=== PATIENT | male | born 1950 | race Caucasian/White ===

== ENCOUNTER 2022-03-14 18:41 | Inpatient (IN) | payer MEDICARE, BC ==
[~2022-03-14] VITALS: Ht 182.9 cm; Wt 79.4 kg
--- NOTE | 2022-03-14 19:00 | NUR ---
[facility], called 911 stating "my is trying to kill me." Pt A/ox3. Tolerating R/A well with no Resp distress. Pt changed in gown. Safety measures in place.
--- NOTE | 2022-03-14 19:05 | NUR ---
EMT AT PT'S BEDSIDE FOR EKG
[2022-03-14] MEDS ORDERED: TRIH2TAB3 PO (19:13)
[2022-03-14] MEDS ORDERED: TAMS-12 PO (19:13)
[2022-03-14] MEDS ORDERED: SERT50TA12 PO (19:13)
[2022-03-14] MEDS ORDERED: QUET25TA PO ×2 (19:13)
[2022-03-14] MEDS ORDERED: ONDA4TAB5 PO (19:13)
[2022-03-14] MEDS ORDERED: LORA-259 PO (19:13)
[2022-03-14] MEDS ORDERED: ZOLP10TA2 PO (19:13)
[2022-03-14] MEDS ORDERED: LEVO150T8 PO (19:13)
[2022-03-14] MEDS ORDERED: CARB1TAB21 PO (19:13)
--- NOTE | 2022-03-14 19:15 | NUR ---
PHLEB AT BEDSIDE FOR BLOOD DRAW
--- NOTE | 2022-03-14 19:17 | NUR ---
COVID SWAB COLLECTED AND SENT TO LAB
--- NOTE | 2022-03-14 19:27 | NUR ---
PROVIDE PT URINAL; AWAITING URINE SAMPLE. WILL F/U
[2022-03-14 19:47] LABS: ALBUMIN 3.9 g/dL (3.4-5.0); BILIRUBIN,DIRECT 0.1 mg/dL (0.0-0.2); BILIRUBIN,TOTAL 0.3 mg/dL (0.2-1.0); CALCIUM, SERUM 8.2 mg/dL (8.5-10.1); CREATININE 1.1 mg/dL (0.6-1.3); POTASSIUM 4.1 mmol/L (3.5-5.1)
[2022-03-14 20:04] LABS: BASOPHILS # (AUTO) 0.1 K/uL (0.0-0.2); BASOPHILS % (AUTO) 0.7 % (0.0-2.0); EOSINOPHILS % (AUTO) 1.3 % (0.0-6.0); HEMATOCRIT 38 % (39-51); HEMOGLOBIN 13.1 g/dL (13.5-17.5); LYMPHOCYTES % (AUTO) 12.9 % (20.0-44.0); MEAN CORPUSCULAR HGB CONC 34 g/dl (31.0-36.0); MEAN CORPUSCULAR VOLUME 94 fL (80-96); MONOCYTES # (AUTO) 0.5 K/uL (0.1-1.30); MONOCYTES % (AUTO) 7.2 % (2.0-12.0); NEUTROPHILS # (AUTO) 5.8 K/uL (1.8-8.9); NEUTROPHILS % (AUTO) 77.9 % (43.0-81.0); PLATELET COUNT (AUTO) 207 K/uL (150-450); RED BLOOD CELL COUNT(AUTO) 4.07 MIL/uL (4.5-6.0); WHITE BLOOD COUNT (AUTO) 7.4 K/uL (4.3-11.0)
--- NOTE | 2022-03-14 20:12 | NUR ---
PROVIDE PT URINAL; PT STILL NOT ABLE TO PROVIDE URINE SAMPLE. WILL F/U
--- NOTE | 2022-03-14 20:43 | NUR ---
URINE COLLECTED AND SENT TO LAB
--- NOTE | 2022-03-14 20:50 | NUR ---
PT PROVIDED WITH FOOD AND WATER; TOLERATING WELL
[2022-03-14 21:10] LABS: BILIRUBIN,URINE NEGATIVE (NEGATIVE); COLOR,URINE YELLOW (YELLOW); LEUKOCYTE ESTERASE ,URINE MODERATE (NEGATIVE); NITRITE, URINE NEGATIVE (NEGATIVE); PH,URINE 6.5 (5.0-8.0); PROTEIN,URINE NEGATIVE (NEGATIVE); UGLUCOSE NEGATIVE (NEGATIVE); UROBILINOGEN,URINE 0.2 EU/dL (0.2)
[2022-03-14 21:32] LABS: BACTERIA,URINE 2+ /HPF (None Seen); RBC,URINE 0-2 /HPF (0-2); SQUAMOUS EPITHELIAL CELL,UR 0-2 /HPF (None Seen); WBC,URINE 51-80 /HPF (0-3)
--- NOTE | 2022-03-14 21:37 | NUR ---
pardeep from dexter team at the bed side
--- NOTE | 2022-03-14 22:01 | NUR ---
5150 HOLD FOR GD PLACED BY ALLEGRA SANDOVAL
[2022-03-15] MEDS ORDERED: ZOLPIDEM TARTRATE 5 MG TABLET PO ONE
[2022-03-15] MEDS ORDERED: ZOLPIDEM TARTRATE 10 MG TABLET ONE (00:09)
[2022-03-15] MEDS ORDERED: ONDANSETRON 4 MG TAB.RAPDIS PO PRN (01:30)
--- NOTE | 2022-03-15 01:45 | NUR ---
REPORT GIVEN TO [facility] GPS RN FOR HCEKO
--- NOTE | 2022-03-15 02:08 | NUR ---
PT TRANSFERRING GPS VIA HOSPITAL PROTOCOL. VSS. ALL BELONGINGS WITH PT.
[2022-03-15 02:15] VITALS: BP 143/89
--- NOTE | 2022-03-15 02:15 | NUR ---
POLYSOMNOGRAPHIC TECHNOLOGIST NOTE: ADMITTED A 71-Y/O, MALE, FROM [facility]- INITIALLY PATIENT CAME FROM HOME. ADMITTED ON A 5150 HOLD FOR GD. PER HOLD, PT. REPORTED THAT HIS IS TRYING TO KILL HIM AND DOES NOT WANT TO GO BACK HOME. UPON FACE TO FACE EVALUATION, PATIENT IS ALERT AND ORIENTED X2, ANXIOUS, PARANOID AND GUARDED. PATIENT DENIES SI/HI AT THIS TIME. SKIN ASSESSMENT DONE. SKIN IS INTACT. ALL BELONGINGS WERE CHECKED FOR CONTRABAND AND WAS KEPT IN PT. ROOM LOCKER. HIS VALUABLES WERE TAKEN TO [facility]. PATIENT'S RIGHTS WERE DISCUSSED AND BOOKLET WAS GIVEN. CONTACTED DR. MADISON AND HOSPITALIST REGGIE SORIANO AND INFORMED THEM OF THE ADMISSION. BED IN LOW AND LOCKED POSITION. SAFETY PRECAUTIONS MAINTAINED. WILL CONTINUE TO MONITOR Q15 MINS FOR MOOD, SAFETY AND BEHAVIOR. PATIENT REFUSED TO COMMENT ABOUT FLU VACCINE AND REFUSING TO GET ONE. WILL INFORM PATIENT'S IN THE MORNING REGARDING ADMISSION.
[2022-03-15] MEDS ORDERED: BLOOD SUGAR DIAGNOSTIC 1 EACH STRIP IN ONE (02:30)
[2022-03-15] MEDS ORDERED: MAGNESIUM HYDROXIDE 30 ML UDC PO PRN (02:30)
[2022-03-15] MEDS ORDERED: MAG HYDROX/AL HYDROX/SIMETH 30 ML UDC PO PRN (02:30)
[2022-03-15] MEDS: ACETAMINOPHEN 325 MG TABLET PO PRN ×2 (05:43→18:55)
[2022-03-15] MEDS: LORAZEPAM 1 MG TABLET PO PRN ×2 (06:09→12:48)
[2022-03-15] MEDS: LEVOTHYROXINE SODIUM 75 MCG TABLET PO SCH (07:37)
[2022-03-15 08:00] VITALS: BP 176/98
[2022-03-15] MEDS: TRIHEXYPHENIDYL HCL 2 MG TABLET PO SCH ×3 (08:23→17:11)
[2022-03-15] MEDS: CARBIDOPA/LEVODOPA 25/100 MG 1 UDTAB PO SCH ×4 (08:24→21:07)
--- NOTE | 2022-03-15 10:00 | NUR ---
RN-CO: OF PATIENT IS THE LOBBY INSISTING TO COME HERE IN THE UNIT. I EXPLAINED THAT IN GPS UNIT, VISITING HOURS IS BETWEEN 6PM TO 8PM DURING WEEKDAYS. SHE WAS INSISTING TO COME HERE TO SEE THE PT. COMPLAINED TO HEAVY EQUIPMENT PLUMBING SUPERVISOR RN AND STATED "I WANT TO TALK TO THE PSYCHIATRIST ALBER." I EXPLAINED TO HER VIA PHONE THAT DR MADISON WILL BE HERE TODAY. SHE INSIST THAT THIS IS THE ONLY HOSPITAL THAT DON'T ALLOW VISITORS. SHE ALSO SAID "I NEED THE PSYCHIATRIST CALL ME NOW." " SHE ALSO DEMANDED BY PHONE THAT THE DOCTOR SHOULD ORDER, ST, NEUROLOGY AND OT.
--- NOTE | 2022-03-15 11:22 | NUR ---
GAB Initial Discharge Plan: Patient currently resides at [address] [place] [address], [place] [address]; ([phone]). GAB contacted pt's Malachi ([phone]) to discuss treatment/discharge plan, however, she was unavailable and this scenario writer left a voicemail to call back. GAB will work with the MD, family, and doctor to help coordinate appropriate discharge.
--- NOTE | 2022-03-15 11:22 | NUR ---
GAB Clinical Note: Pt placed on a 5150 hold for GD. Pt was paranoid against at home and was afraid of wanting to kill him. Patient currently resides at [address] [place] [address]; ([phone]). GAB contacted pt's Malachi ([phone]) to discuss treatment/discharge plan, however, she was unavailable and this inspector automatic typewriter left a voicemail to call back.
--- NOTE | 2022-03-15 11:23 | NUR ---
GAB Family Contact: SW contacted pt's Malachi ([phone]) to discuss treatment/discharge plan, however, she was unavailable and this auto service writer left a voicemail to call back.
--- NOTE | 2022-03-15 11:23 | NUR ---
Treatment Plan: Pt was afraid and refused to sign.
--- NOTE | 2022-03-15 11:32 | NUR ---
RN-CO: NOTIFIED DR MADISON THAT WHITLEY WANTS TO TALK TO HIM [phone]. DR MADISON ORDERED NEUROLOGY CONSULT, OT, ST, NOTED.
--- NOTE | 2022-03-15 11:52 | NUR ---
RN-CO: DR VINCENT WAS NOTIFIED REGARDING PT'S URINE WBC. AWAITING FOR RESPONSE.
--- NOTE | 2022-03-15 12:50 | NUR ---
NURSE NOTE: PT ANXIOUS AT THIS TIME. ATIVAN ADMINISTERED AT THIS TIME. WILL CONT TO MONITOR.
--- NOTE | 2022-03-15 13:50 | NUR ---
NURSE NOTE: PT CALM, IN STABLE CONDITION. WILL CONT TO MONITOR.
--- NOTE | 2022-03-15 14:58 | NUR ---
GAB Family Contact: GAB received a call back from pt's Hugo Ly ([phone]). She is not the DPOA. GAB and doctor Andre attempted to discuss pt's treatment/discharge plan and she was consistently yelling and was not allowing to speak. SW explained to her the reason why pt was brought in and read the 5150 hold. SW attempted to educate pt on pt's status, however, she was not understanding. kept stating that the staff does not know how to treat "Parkinsons Disease". was requesting for Neuro consult and SW informed charge Nurse Jacki who she had already requested this. is not understanding and is threatening the staff that she will hire a griddle attendant.
[2022-03-15 16:00] VITALS: BP 157/81
--- NOTE | 2022-03-15 16:19 | NUR ---
RN-CO: DR SILVA (NEUROLOGIST) SEEN AND EXAMINED PATIENT THIS AFTERNOON.
--- NOTE | 2022-03-15 16:22 | NUR ---
RN-CO: Velasquez (activity) assisted patient to do some exercises, walked him in the hallway and invited him to participate in group activities.
--- NOTE | 2022-03-15 18:14 | NUR ---
RN-CO: PATIENT'S CAME TO VISIT HER, REFUSED TO PUT HER CELLPHONE IN THE VISITOR'S LOCKER SHE HAS INTENSE EYE CONTACT AND ANGRY. STAFF NEEDS TO BE WITH HER EVEN THE ALTERATIONS MANAGER IS BUSY PASSING HER MEDICATIONS TO OTHER PATIENTS TO MAKE SURE HER SHE WON'T USE HER CELLPHONE FOR PICTURES OR VIDEO. SHE THREATENED ME, " IF MY KIDS CALL ME I WILL HOLD YOU RESPONSIBLE FOR NOT LETTING ME USE IT!"
--- NOTE | 2022-03-15 18:55 | NUR ---
NURSE NOTE: PT C/O NECK PAIN AT THIS TIME. TYLENOL PO ADMINISTERED ORDERED. WILL CONT TO MONITOR.
--- NOTE | 2022-03-15 19:30 | NUR ---
NURSE NOTE: PT STATED PAIN HAS DECREASED. FEELS BETTER. TYLENOL EFFECTIVE AT THIS TIME. WILL CONT TO MONITOR.
[2022-03-15 20:00] VITALS: BP 160/90
[2022-03-15] MEDS: QUETIAPINE FUMARATE 25 MG TABLET PO SCH (21:07)
[2022-03-15] MEDS: TAMSULOSIN 0.4 MG CAP.SR.24H PO SCH (21:07)
[2022-03-15] MEDS: ZOLPIDEM TARTRATE 5 MG TABLET PO PRN (21:53)
[2022-03-16] MEDS: LORAZEPAM 1 MG TABLET PO PRN (02:34)
--- NOTE | 2022-03-16 04:47 | NUR ---
RN NOTE SEAT COVER INSTALLER LEANA WAS NOTIFIED REGARDING PT'S URINE WBC WITH NEW ORDER OF KEFLEX 500MG PO BID X 5 DAYS NOTED AND CARRIED OUT.
[2022-03-16] MEDS: CEPHALEXIN MONOHYDRATE 500 MG CAPSULE PO SCH ×3 (05:12→16:19)
[2022-03-16] MEDS: LEVOTHYROXINE SODIUM 75 MCG TABLET PO SCH (07:33)
[2022-03-16 08:00] VITALS: BP 113/62
[2022-03-16] MEDS: SERTRALINE HCL 50 MG TABLET PO SCH (09:10)
[2022-03-16] MEDS: CARBIDOPA/LEVODOPA 25/100 MG 1 UDTAB PO SCH ×4 (09:11→20:20)
[2022-03-16] MEDS: TRIHEXYPHENIDYL HCL 2 MG TABLET PO SCH ×3 (09:11→16:18)
--- NOTE | 2022-03-16 09:54 | NUR ---
GAB Family Contact: GAB received a call from pt's Hugo Ly ([phone]) who stated that she was concerned of pt's medications and that she felt that he was weak. GAB and charge nurse Kristine went to assess the pt. Pt stated that he was just having a headache and feeling a little weak. GAB spoke with physical therapist who stated that pt is walking and doing better. Pt's speech also appeared to be clear. GAB notified Dr. Powell and he stated that he has not changed his medications and to notify the . GAB notified the of the medications and his current status. She was appreciative of this.
[2022-03-16 12:11] LABS: CHOLESTEROL 242 mg/dL (<200); HDL CHOLESTEROL 88 mg/dL (40-60); LDL 135 mg/dL (0-99); TRIGLYCERIDES 77 mg/dL (30-150)
[2022-03-16] MEDS ORDERED: LORAZEPAM 0.5 MG TABLET PO STA (14:16)
[2022-03-16 16:11] VITALS: BP 147/88
[2022-03-16 20:25] VITALS: BP 154/94
[2022-03-16] MEDS: ZOLPIDEM TARTRATE 5 MG TABLET PO PRN (21:18)
[2022-03-16] MEDS: QUETIAPINE FUMARATE 25 MG TABLET PO SCH (21:18)
[2022-03-16] MEDS: TAMSULOSIN 0.4 MG CAP.SR.24H PO SCH (21:18)
[2022-03-17] MEDS: LORAZEPAM 1 MG TABLET PO PRN (00:01)
[2022-03-17] MEDS: ACETAMINOPHEN 325 MG TABLET PO PRN (03:38)
--- NOTE | 2022-03-17 07:45 | NUR ---
RN OPENING NOTES PATIENT AWAKE IN BED RESTING, A/O X2, FORGETFUL, CONFUSED. NO S/S OF PAIN NOTED AT THIS TIME. ON ROOM AIR, NO DISTRESS OR SHORTNESS OF BREATH NOTED. PATIENT COMPLIANT WITH MEDICATION. PATIENT DENIES SUICIDE IDEATIONS AND HOMICIDAL IDEATIONS AT THIS TIME. PATIENT HAS NO NEEDS AT THIS TIME. FALL AND SAFETY MEASURES IN PLACE, BED ALARM ON, BED IN LOW LOCK POSITION, CALL LIGHT AND TABLE WITHIN EASY REACH, SIDE RAILS UP X2. WILL CONTINUE TO MONITOR.
--- NOTE | 2022-03-17 07:50 | NUR ---
RN OPENING NOTES PATIENT AWAKE IN BED RESTING, A/O X2-3. NO S/S OF PAIN NOTED AT THIS TIME. ON ROOM AIR, NO DISTRESS OR SHORTNESS OF BREATH NOTED. PATIENT COMPLIANT WITH MEDICATION. PATIENT DENIES SUICIDE IDEATIONS AND HOMICIDAL IDEATIONS AT THIS TIME. PATIENT HAS NO NEEDS AT THIS TIME. FALL AND SAFETY MEASURES IN PLACE, BED ALARM ON, BED IN LOW LOCK POSITION, CALL LIGHT AND TABLE WITHIN EASY REACH, SIDE RAILS UP X2. WILL CONTINUE TO MONITOR.
[2022-03-17 08:00] VITALS: BP 130/83
--- NOTE | 2022-03-17 08:10 | NUR ---
SW Discharge Note: Patient will return back home located at [address] [facility] [facility] [address], [place] [address]; ([phone]). Patients Malachi ([phone]) will steel pickler pt at 11AM. Pt appears to be alert and oriented x3. Pt denies suicidal and homicidal ideation. Pt denies visual/auditory hallucinations. Pt happy to be going back home. Pt will follow up with (Casing Cooker) Dr. Juan A Vasquez, located at [address] [place] [id number]; who will monitor and provide patients psychotropic medications. Pt presents with euthymic mood and congruent affect.
[2022-03-17] MEDS: SERTRALINE HCL 50 MG TABLET PO SCH (09:22)
[2022-03-17] MEDS: CARBIDOPA/LEVODOPA 25/100 MG 1 UDTAB PO SCH (09:22)
[2022-03-17] MEDS: LEVOTHYROXINE SODIUM 75 MCG TABLET PO SCH (09:22)
[2022-03-17] MEDS: TRIHEXYPHENIDYL HCL 2 MG TABLET PO SCH (09:22)
[2022-03-17] MEDS: CEPHALEXIN MONOHYDRATE 500 MG CAPSULE PO SCH (09:24)
--- NOTE | 2022-03-17 11:20 | NUR ---
ADMINISTRATIVE SERVICES SPECIALIST NOTE 71 YEAR OLD MALE DISCHARGED AMA, WANT TO TAKE HIM HOME, IN STABLE CONDITION. COMPLIANT WITH MEDICATIONS, COOPERATIVE WITH TREATMENT PLANS. PATIENT DENIES SI/HI AND INSTRUCTED TO GO TO THE CLOSEST ER IF DEVELOPING SI/HI. BEHAVIOR IMPROVED, PSYCHIATRIC TX PLAN MET AND TO CONTINUE TO MONITOR, MEDICAL TX PLANS DEFERRED FOR CONTINUAL MONITORING. INSTRUCTED PATIENT TO MAKE APPOINTMENT WITH HIS DOCTOR. EDUCATED PATIENT ABOUT AFTER CARE PLAN (EXIT-CARE) AND COPY PROVIDED. ALL BELONGINGS CHECKED AND SIGNED, RETURNED PERSONAL BELONGINGS TO PATIENT. NAME ARM BAND REMOVED. SKIN ASSESSMENT DONE, NO WOUNDS. MEDICATIONS RECONCILED WITH PSYCHIATRIST (GAGAN MADISON) AND MED. INT. (GILBERT VINCENT). PATIENT SIGNED DISCHARGE PAPERWORK. HEALTH TEACHING AND DISCHARGE INSTRUCTIONS GIVEN TO PATIENT AND PATIENT'S (ZULLY), VERBALIZED UNDERSTANDING. DISCUSSED MEDICATIONS WITH PATIENT AND INSTRUCTED PATIENT INCASE OF EMERGENCY TO CALL 911 OR GO TO NEAREST ER. PATIENT LEFT UNIT AMBULATING WITH NO SIGNS OF DISTRESS, ACCOMPANIED BY RN TO THE LOBBY. CHARGE NURSE AWARE OF DISCHARGE.
== END 2022-03-17 11:20 | disposition home or self-care (01) | DRG 885 ==
LOC: ER 18:43 → GPS 03-15 00:50
PROVIDERS: ADMIT Psychiatry & Neurology Psychiatry; ATTEND Internal Medicine
DX: F29 Unspecified psychosis not due to a substance or known physiological condition (principal); F02.84 Dementia in other diseases classified elsewhere, unspecified severity, with anxiety; F41.9 Anxiety disorder, unspecified; G20 Parkinson's disease; Z79.899 Other long term (current) drug therapy; E03.9 Hypothyroidism, unspecified; F32.A Depression, unspecified; Z53.1 Procedure and treatment not carried out because of patient's decision for reasons of belief and group pressure; Z91.81 History of falling; R27.8 Other lack of coordination; N40.0 Benign prostatic hyperplasia without lower urinary tract symptoms; F32.9 Major depressive disorder, single episode, unspecified; R53.1 Weakness
CPT/HCPCS: 36415; 80048-TC; 80061-TC; 80076-TC; 81001; 82565-TC; 82962-TC; 85025-TC; 87081-TC; 87086-TC; 92526; 92611-TC; 97116-TC; 97530-TC; C9803; G0480

== ENCOUNTER 2022-10-07 20:52 | Inpatient (IN) | payer MEDICARE, BC ==
[~2022-10-07] VITALS: Ht 182.9 cm; Wt 70.3 kg
[~2022-10-07 20:52] MED LIST: CARB1TAB21 PO; LEVO150T8 PO; LORA-259 PO; ONDA4TAB5 PO; QUET25TA PO; SERT50TA12 PO; TAMS-12 PO; TRIH2TAB3 PO; ZOLP10TA2 PO
--- NOTE | 2022-10-07 21:14 | NUR ---
[id number] CC ANNETTE LEG PAIN X2 DAYS STARTED 10/06/22, NONTRAUMATIC. PAIN 12/30. PT AAOX4, IN NAD. TO ER 3 FOR EVAL.
[2022-10-07] MEDS ORDERED: BENZTROPINE MESYLATE (1 MG) 1 MG TABLET PO ONE (21:30)
[2022-10-07] MEDS ORDERED: BENZTROPINE MESYLATE (1 MG) 1 MG TABLET ONE (21:31)
--- NOTE | 2022-10-07 21:38 | NUR ---
URINE COLLECTED SENT TO LAB
[2022-10-07] MEDS ORDERED: MORPHINE SULFATE INJ 2 MG/ML DISP.SYRIN ONE (21:40)
[2022-10-07] MEDS ORDERED: MORPHINE SULFATE INJ 2 MG/ML DISP.SYRIN IM ONE (22:00)
[2022-10-07] MEDS ORDERED: QUETIAPINE FUMARATE 100 MG TABLET PO SCH (22:30)
[2022-10-07] MEDS ORDERED: ZOLPIDEM TARTRATE 5 MG TABLET PO ONE (22:30)
[2022-10-07] MEDS ORDERED: QUETIAPINE FUMARATE 100 MG TABLET ONE (22:36)
[2022-10-07] MEDS ORDERED: diphenhydrAMINE HCL 50 MG/ML VIAL ONE (22:50)
[2022-10-07] MEDS ORDERED: LORAZEPAM INJ 2 MG/ML VIAL ONE (22:51)
[2022-10-07] MEDS ORDERED: LORAZEPAM INJ 2 MG/ML VIAL IM ONE (23:00)
[2022-10-07] MEDS ORDERED: diphenhydrAMINE HCL 50 MG/ML VIAL IM ONE (23:00)
[2022-10-07] MEDS ORDERED: HALOPERIDOL LACTATE INJ 5 MG/ML VIAL ONE (23:16)
[2022-10-07] MEDS ORDERED: HALOPERIDOL LACTATE INJ 5 MG/ML VIAL IM ONE (23:30)
--- NOTE | 2022-10-08 00:04 | NUR ---
LAB AT BEDSIDE
[2022-10-08 00:45] LABS: BASOPHILS % (AUTO) 0.6 % (0.0-2.0); EOSINOPHILS % (AUTO) 0.8 % (0.0-6.0); HEMATOCRIT 39 % (39-51); LYMPHOCYTES # (AUTO) 1.1 K/uL (0.8-4.8); LYMPHOCYTES % (AUTO) 17.5 % (20.0-44.0); MEAN CORPUSCULAR HGB CONC 33 g/dl (31.0-36.0); MEAN CORPUSCULAR VOLUME 93 fL (80-96); MONOCYTES # (AUTO) 0.4 K/uL (0.1-1.30); MONOCYTES % (AUTO) 5.9 % (2.0-12.0); NEUTROPHILS # (AUTO) 4.9 K/uL (1.8-8.9); NEUTROPHILS % (AUTO) 75.2 % (43.0-81.0); PLATELET COUNT (AUTO) 233 K/uL (150-450); RED BLOOD CELL COUNT(AUTO) 4.22 MIL/uL (4.5-6.0); WHITE BLOOD COUNT (AUTO) 6.5 K/uL (4.3-11.0)
[2022-10-08 00:52] LABS: CALCIUM, SERUM 8.6 mg/dL (8.5-10.1); CREATININE 1.1 mg/dL (0.6-1.3); POTASSIUM 3.7 mmol/L (3.5-5.1)
[2022-10-08 00:58] LABS: ALBUMIN 3.8 g/dL (3.4-5.0); BILIRUBIN,DIRECT 0.1 mg/dL (0.0-0.2); BILIRUBIN,TOTAL 0.2 mg/dL (0.2-1.0)
--- NOTE | 2022-10-08 01:46 | NUR ---
PT SLEEPING COMFORTABLY AT THIS TIME
[2022-10-08 02:16] LABS: BILIRUBIN,URINE NEGATIVE (NEGATIVE); COLOR,URINE YELLOW (YELLOW); LEUKOCYTE ESTERASE ,URINE NEGATIVE (NEGATIVE); NITRITE, URINE NEGATIVE (NEGATIVE); PROTEIN,URINE NEGATIVE (NEGATIVE); UGLUCOSE NEGATIVE (NEGATIVE); UROBILINOGEN,URINE 0.2 EU/dL (0.2)
[2022-10-08] MEDS ORDERED: ONDANSETRON HCL/PF 4 MG/2 ML VIAL IVP PRN (04:30)
[2022-10-08] MEDS ORDERED: ACETAMINOPHEN 325 MG TABLET PO PRN (04:30)
[2022-10-08] MEDS ORDERED: MORPHINE SULFATE INJ 2 MG/ML DISP.SYRIN IV PRN (04:30)
--- NOTE | 2022-10-08 07:15 | NUR ---
RECEVED PT FROM [facility]IN JACKSON PT ASLEEPY NO DISTRESS
--- NOTE | 2022-10-08 07:40 | NUR ---
BED 307. ADMITTING DEPARTMENT NOTIFIED.
--- NOTE | 2022-10-08 07:55 | NUR ---
HAND OFF GILDA RN TO ROOM 307 VIA SHANTANU STABLE CONDITION AWAKE AND ALERT
--- NOTE | 2022-10-08 08:30 | NUR ---
ADMITTING RN NOTES: ADMITTED A 71 YO MALE PT FROM ER VIA GURNEY ACCOMPANIED BY TRANSPORTER. WITH DX OF PAIN. PT ALERT AND ORIENTED X 3 AND ABLE TO MAKE NEEDS KNOWN, PT KEPT HIS EYES CLOSED UNLESS INSTRUCTED TO OPEN HIS EYES. PT ORIENTED TO THE UNIT, ROOM MATE AND STAFFS. PAIN IN HIS NECK AND GENERALIZED PAIN 3/10,PT ON ROOM AIR AND TOLERATING WELL.ABDOMEN SOFT,ABLE TO FOLLOW COMMAND. IV ACCESS ON RAC GAUGE 18,PATENT INTACT AND SALINE LOCKED. SKIN IS WARM AND DRY.SKIN ISSUES NOTED: NECK AND ANTERIOR CHEST RASHES/REDNESS, LEFT ANTERIOR THIGH SCAB WOUND PICTURES TAKEN AND FILED TO PT'S CHART. CONDOM CATHETER IN PLACE DRAINING CLEAR YELLOW COLORED URINE BY GRAVITY. BELONGINGS CLOTHES THAT PT WEARING, NOTED WITH KEYS, SHOES. NOTED WITH YELLOW COLORED RING ON HIS LEFT MIDDLE FINGER. SAFETY MEASURES INITIATED: BED LOCKED AND IN LOWEST POSITION, SIDE RAILS UP X 2, CALL LIGHT AND BED SIDE TABLE IN EASY REACH AND WILL MONITOR PT ACCORDINGLY.
[2022-10-08] MEDS: TRIHEXYPHENIDYL HCL 2 MG TABLET PO SCH ×3 (08:59→17:06)
[2022-10-08] MEDS: CARBIDOPA/LEVODOPA 25/100 MG 1 UDTAB PO SCH ×4 (08:59→21:40)
[2022-10-08] MEDS: LEVOTHYROXINE SODIUM 50 MCG TABLET PO SCH (08:59)
[2022-10-08] MEDS: SERTRALINE HCL 50 MG TABLET PO SCH (08:59)
[2022-10-08] MEDS: HEPARIN SODIUM, PORCINE 5000 UNITS/1 ML VIAL SQ SCH ×2 (09:00→21:41)
--- NOTE | 2022-10-08 09:11 | NUR ---
WOUND CARE CONSULT: PT SEEN ON REQUEST OF NURSING STAFF FOR URINARY INCONTINENCE. RECOMMENDATIONS MADE FOR SKIN PROTECTION. DISCUSSED WITH NURSING STAFF. MD IN AGREEMENT WITH PLAN OF CARE.
--- NOTE | 2022-10-08 09:30 | NUR ---
RN NOTES: GATHERED FEW INFORMATIONS FROM (IRAIS) [phone].
--- NOTE | 2022-10-08 12:00 | NUR ---
RN NOTES: SEEN AND EXAMINED BY LEAN SIX SIGMA BLACK BELT GISELE (DR ROSALES) MADE AWARE ABOUT THE BP 155/104, HR 90 BP,COMPLAINED NECK PAIN 10/10 PAIN MEDS GIVEN. GAVE PT'S NUMBER. WILL MONITOR PT ACCORDINGLY.
[2022-10-08] MEDS: QUETIAPINE FUMARATE 25 MG TABLET PO PRN (16:12)
--- NOTE | 2022-10-08 17:40 | NUR ---
RN NOTES: INFORMED DR ROSALES ABOUT PT'S HOME MEDS SINEMET 25/100MG 1 TAB SHOULD BE 2 TABS AND PT WILL HAVE SURGERY ON TUESDAY. I GAVE 'S NUMBER TO DR BOBBY BRAXTON [phone] ROSALES REVIEWED PT'S MEDS WITH PER .
[2022-10-08 17:52] VITALS: BP 172/101
--- NOTE | 2022-10-08 18:47 | NUR ---
MS RN CLOSING NOTES: PATIENT IN BED AWAKE, ALERT AND ORIENTED X 3 ABLE TO MAKE NEEDS KNOWN WITH EPISODES OF FORGETFULNESS AND CONFUSION. NO SOB OR CARDIAC DISTRESS NOTED. DENIES PAIN AT THIS DENNISE. IV ACCESS ON RAC GAUGE 18 PATENT AND INTACT AND SALINE LOCKED.CONDOM CATHETER IN PLACE NOTED WITH CLEAR YELLOW COLORED URINE VIA GRAVITY.SAFETY MEASURES MAINTAINED: BED LOCKED AND IN LOWEST POSITION, SIDERAILS UP X 2. CALL LIGHT IN EASY REACH FOR HELP. WILL ENDORSE TO [facility] SHIFT FOR CONTINUITY OF CARE.
--- NOTE | 2022-10-08 19:30 | NUR ---
denise rn opening Received patient in bed, a/ox3. no s/s of apparent distress on room air. still c/o pain on his neck. condom catheter draining via gravity. safety in place, bed in lowest, locked position, call light within reach, side rails up X3, bed alarm in place. will continue with patient's plan of care.
[2022-10-08 20:00] VITALS: BP 160/95
[2022-10-08] MEDS ORDERED: TAMSULOSIN 0.4 MG CAP.SR.24H PO SCH (22:00)
[2022-10-08] MEDS ORDERED: QUETIAPINE FUMARATE 25 MG TABLET PO SCH (22:00)
[2022-10-08 22:23] VITALS: BP 158/87
--- NOTE | 2022-10-08 22:24 | NUR ---
noc rn note- BP re-assessment BP 158/87, HR 77.
[2022-10-09] MEDS: QUETIAPINE FUMARATE 25 MG TABLET PO PRN (03:58)
--- NOTE | 2022-10-09 03:58 | NUR ---
noc rn note patient's seroquel night dose ineffective. Given the PRN seroquel 12.5 as ordered PRN. patient shaking so much d/t tremors. will continue to monitor.
[2022-10-09 07:08] LABS: BASOPHILS % (AUTO) 0.4 % (0.0-2.0); EOSINOPHILS % (AUTO) 1.7 % (0.0-6.0); HEMATOCRIT 40 % (39-51); HEMOGLOBIN 13.3 g/dL (13.5-17.5); LYMPHOCYTES # (AUTO) 1.4 K/uL (0.8-4.8); LYMPHOCYTES % (AUTO) 17.2 % (20.0-44.0); MEAN CORPUSCULAR HGB CONC 33 g/dl (31.0-36.0); MEAN CORPUSCULAR VOLUME 92 fL (80-96); MONOCYTES # (AUTO) 0.7 K/uL (0.1-1.30); MONOCYTES % (AUTO) 8.4 % (2.0-12.0); NEUTROPHILS # (AUTO) 5.9 K/uL (1.8-8.9); NEUTROPHILS % (AUTO) 72.3 % (43.0-81.0); PLATELET COUNT (AUTO) 261 K/uL (150-450); RED BLOOD CELL COUNT(AUTO) 4.39 MIL/uL (4.5-6.0); WHITE BLOOD COUNT (AUTO) 8.1 K/uL (4.3-11.0)
[2022-10-09 07:25] LABS: ALANINE AMINOTRANSFERASE 16 U/L (12-78); ALBUMIN 3.8 g/dL (3.4-5.0); ALKALINE PHOSPHATASE 72 U/L (46-116); ASPARTATE AMINOTRANSFERASE 19 U/L (15-37); BILIRUBIN,TOTAL 0.7 mg/dL (0.2-1.0); CALCIUM, SERUM 8.5 mg/dL (8.5-10.1); CARBON DIOXIDE 26 mmol/L (21-32); CHLORIDE 103 mmol/L (98-107); GLUCOSE 116 mg/dL (74-106); MAGNESIUM 2.2 mg/dL (1.8-2.4); PHOSPHORUS 3.1 mg/dL (2.5-4.9); POTASSIUM 3.7 mmol/L (3.5-5.1); SODIUM SERUM 139 mmol/L (136-145); TOTAL PROTEIN, SERUM 7.2 g/dL (6.4-8.2); UREA NITROGEN, BLOOD 29 mg/dL (7-18)
--- NOTE | 2022-10-09 07:30 | NUR ---
noc rn closing needs attended. report given to Yang Gonzalez for continuity of patient care.
--- NOTE | 2022-10-09 07:30 | NUR ---
MS RN OPENING NOTES RECEIVED PT IN BED, ASLEEP, RESTING COMFORTABLY. ALERT/ORIENTED X3, DENIES PAIN AT THIS TIIME. PT ON ROOM AIR WITHOUT APPARENT DISTRESS. CONTINENT/INCONTINENT, ON BED REST. IV ACCESS ON RIGHT AC #18G SALINE LOCK. FALL SAFETY MEASURES IN PLACED. BED LOCKED IN LOWEST POSITION, SIDE RAILS UP X2. WILL ADMINISTER ALL SCHEDULED MEDS AND CONTINUE TO MONITOR.
[2022-10-09] MEDS: LEVOTHYROXINE SODIUM 50 MCG TABLET PO SCH (07:59)
[2022-10-09 08:00] VITALS: BP 146/91
[2022-10-09] MEDS: TRIHEXYPHENIDYL HCL 2 MG TABLET PO SCH ×2 (08:00→12:33)
[2022-10-09] MEDS: SERTRALINE HCL 50 MG TABLET PO SCH (08:00)
[2022-10-09] MEDS: CARBIDOPA/LEVODOPA 25/100 MG 1 UDTAB PO SCH ×2 (08:00→12:33)
[2022-10-09] MEDS: HEPARIN SODIUM, PORCINE 5000 UNITS/1 ML VIAL SQ SCH (08:27)
--- NOTE | 2022-10-09 16:00 | NUR ---
MS FINANCIAL RECRUITER NOTES PT DISCHARGE STABLE WITHOUT DISTRESS. LEFT THE FACILITY AMBULATORY AT 1600ACCOMPANIED BY DAUGHTER. VITALS TAKEN AND RECORDED. IV ACCESS REMOVED PROR DISCHARGED AND ARM BAND REOVED. REFUSED SKIN ASSESSMENT AND PHOTOS TAKEN FOR DISCHARGE. ALL BELONGINGS CHECKED AND RECONCILED. HEALTH TEACHING AND DISCHARGE INSTRUCTIONS GIVEN, VERBALIZED UNDERSTANDING. INSTRUCTED TO FOLLOW UP WITH PCP AND RETURN TO ER OR CALL 911 INCASE OF EMERGENCY. CHARGE NURSE AWARE.
== END 2022-10-09 16:00 | disposition home or self-care (01) | DRG 57 ==
LOC: ER 20:57 → TRANSITION 10-08 06:51 → MED 10-08 07:49
PROVIDERS: ADMIT Nurse Practitioner Acute Care; ATTEND Nurse Practitioner Acute Care
DX: G20 Parkinson's disease (principal); F10.239 Alcohol dependence with withdrawal, unspecified; I10 Essential (primary) hypertension; F06.8 Other specified mental disorders due to known physiological condition; E89.0 Postprocedural hypothyroidism; N40.0 Benign prostatic hyperplasia without lower urinary tract symptoms; Z79.899 Other long term (current) drug therapy; Z20.822 Contact with and (suspected) exposure to COVID-19
CPT/HCPCS: 36415; 72125-TC; 80048-TC; 80053-TC; 80076-TC; 83735-TC; 84100-TC; 85025-TC; 97112-TC; 97116-TC; 97530-TC; A4349; C9803; G0378; G0480; J1200; J1630; J1644; J2060; J2270

== ENCOUNTER 2023-01-13 16:26 | Emergency (ER) | payer MEDICARE, BC ==
[~2023-01-13] VITALS: Ht 167.6 cm; Wt 71.2 kg
[2023-01-13] MEDS ORDERED: HYDROCODONE/APAP 5/325MG TABLET PO ONE (17:00)
[2023-01-13] MEDS ORDERED: LORAZEPAM 0.5 MG TABLET PO ONE (17:00)
[2023-01-13] MEDS ORDERED: HYDROCODONE/APAP 5/325MG TABLET ONE (17:04)
[2023-01-13] MEDS ORDERED: LORAZEPAM 0.5 MG TABLET ONE (17:04)
[2023-01-13 21:21] VITALS: BP 151/89; TEMP 98.1; O2SAT 99
== END 2023-01-13 21:21 | disposition home or self-care (01) ==
LOC: ER 16:30
DX: G20 Parkinson's disease (principal); F41.9 Anxiety disorder, unspecified; R45.1 Restlessness and agitation; M79.604 Pain in right leg; M79.605 Pain in left leg; I10 Essential (primary) hypertension; Z79.899 Other long term (current) drug therapy